=== PATIENT | female | born 1960 | race Caucasian/White ===

== ENCOUNTER 2017-09-03 07:15 | Day surgery (SDC) | payer BC ==
[~2017-09-03] VITALS: Ht 172.7 cm; Wt 88.9 kg
[~2017-09-03 07:15] MED LIST: CEFAZOLIN SOD 1 GM/ ISO 50 ML PREMIX IV ONE
[2017-09-03] MEDS ORDERED: IOHEXOL 50 ML IV ONE (07:38)
[2017-09-03] MEDS ORDERED: BUPIVACAINE /PF 0.25% 30 ML VIAL INJ ONE (09:00)
[2017-09-03] MEDS ORDERED: NS IRRIG SOLN 1000 ML IR ONE (09:00)
[2017-09-03] MEDS ORDERED: SEVOFLURANE 15 MIN GAS INH ONE (09:00)
[2017-09-03] MEDS ORDERED: fentaNYL CITRATE 250 MCG/5 ML AMP IV ONE (09:00)
[2017-09-03] MEDS ORDERED: MIDAZOLAM HCL 5 MG/5 ML VIAL IVP ONE (09:00)
[2017-09-03] MEDS ORDERED: ONDANSETRON HCL 4 MG/2 ML VIAL IVP ONE (09:00)
[2017-09-03] MEDS ORDERED: NEOSTIGMINE METHYLSULFATE 1 MG/ML, 10 ML VIAL IVP ONE (09:00)
[2017-09-03] MEDS ORDERED: ROCURONIUM BROMIDE 10 MG/ML (ZEMURON) IV ONE (09:00)
[2017-09-03] MEDS ORDERED: PROPOFOL 200MG/ 20ML VIAL (DIPRIVAN) IV ONE (09:00)
[2017-09-03] MEDS ORDERED: GLYCOPYRROLATE 0.2 MG/ML VIAL IJ ONE (09:00)
[2017-09-03] MEDS ORDERED: LR 1,000 ML IV SCH (09:42)
[2017-09-03] MEDS ORDERED: MORPHINE 4 MG/ML INJ. SYRINGE IVP PRN ×3 (09:45)
[2017-09-03] MEDS ORDERED: METOCLOPRAMIDE HCL 10 MG/2 ML VIAL IVP PRN (09:45)
[2017-09-03] MEDS ORDERED: D5/0.45 NS 1,000 ML IV SCH (10:10)
[2017-09-03] MEDS ORDERED: MORPHINE 4 MG/ML INJ. SYRINGE IVP ONE ×2 (10:11→10:37)
[2017-09-03] MEDS ORDERED: HYDROmorphone 1 MG INJ. 1 MG/ML AMPUL IVP PRN (10:15)
[2017-09-03] MEDS ORDERED: HYDROcodone/ACETAMIN 5-325 MG TAB (NORCO/ VICODIN) PO PRN ×2 (10:15)
[2017-09-03] MEDS ORDERED: MORPHINE 4 MG/ML INJ. SYRINGE ONE (10:24)
[2017-09-03] MEDS ORDERED: METOCLOPRAMIDE HCL 10 MG/2 ML VIAL ONE (10:58)
[2017-09-03] MEDS ORDERED: METOCLOPRAMIDE HCL 10 MG/2 ML VIAL IVP ONE (10:59)
[2017-09-03 11:11] VITALS: BP_SYST 118
== END 2017-09-03 12:20 | disposition home or self-care (01) ==
LOC: SDS 07:15 → SMU 07:15 → SDS 12:20
PROVIDERS: ATTEND Colon & Rectal Surgery
DX: K80.10 Calculus of gallbladder with chronic cholecystitis without obstruction (principal); M79.7 Fibromyalgia; Z86.010 Personal history of colon polyps; E78.5 Hyperlipidemia, unspecified; E03.9 Hypothyroidism, unspecified; M54.5 Low back pain; Z68.31 Body mass index [BMI] 31.0-31.9, adult; K21.0 Gastro-esophageal reflux disease with esophagitis; Z79.899 Other long term (current) drug therapy
CPT/HCPCS: 47563; 76000; 88304; C1727; C1758; J0690; J2250; J2270; J2405; J2704; J2710; J2765; J3010; J3490 ×2; J7120; Q9967